=== PATIENT | male | born 1995 | race Two or more races ===

== ENCOUNTER 2022-12-28 00:32 | Emergency (ER) | payer SELFPAY ==
[2022-12-28] MEDS ORDERED: Morphine 4 MG/ML Syringe IVPUSH ONE (00:36)
[2022-12-28] MEDS ORDERED: Sodium Chloride 0.9% 2.5 ML Syringe FLUSH PRN (00:36)
[2022-12-28] MEDS ORDERED: Sodium Chloride 0.9% 20 ML SDV IV PRN (00:36)
[2022-12-28] MEDS ORDERED: Morphine 4 MG/ML Syringe ONE (00:37)
[2022-12-28] MEDS: Sodium Chloride 0.9% 10 ML Syringe FLUSH PRN ×3 (00:48→01:14)
[2022-12-28] MEDS ORDERED: Iopamidol 755 MG/ML 500 ML Multipack Bottle IVPUSH ONE (01:00)
[2022-12-28 01:16] LABS: CARBON DIOXIDE,CO2 26.1 mmol/L (21.0-32.0); POTASSIUM,K 3.3 mmol/L (3.5-5.1)
[2022-12-28] MEDS ORDERED: Lactated Ringers 1,000 ML IV STA ×2 (01:28→01:45)
[2022-12-28] MEDS ORDERED: HYDROmorphone 1 MG/ML Syringe IVPUSH ONE (01:52)
[2022-12-28] MEDS ORDERED: Diphtheria,Pertussis(Acell),Tetanus Vaccine 0.5 ML Syringe IM ONE (01:52)
[2022-12-28] MEDS ORDERED: LORazepam 2 MG/ML SDV IVPUSH STA (02:15)
== END 2022-12-28 02:38 ==
LOC: MW.ED 00:32
DX: S37.039A Laceration of unspecified kidney, unspecified degree, initial encounter (principal); M89.9 Disorder of bone, unspecified; J98.2 Interstitial emphysema; F10.929 Alcohol use, unspecified with intoxication, unspecified; Z23 Encounter for immunization; W13.9XXA Fall from, out of or through building, not otherwise specified, initial encounter; Z20.822 Contact with and (suspected) exposure to COVID-19
CPT/HCPCS: 36415; 70450; 71260; 72125; 72128; 72131; 74177; 80053; 80307; 83690; 85025; 86850; 86900; 86901; 87635; 90471; 90715; 96361; 96374; 96375; 99285; J1170; J2060; J2270; J3490; J7120; Q9967; U0002